=== PATIENT | female | born 1950 | race Caucasian/White ===

== ENCOUNTER 2022-06-06 12:34 | Observation (INO) | payer OTHER ==
[~2022-06-06] VITALS: Ht 149.9 cm; Wt 43.1 kg
[2022-06-06 15:15] LABS: BASOPHILS ABSOLUTE AUTO 0.02 K/mm3 (0.00-0.23); BASOPHILS PERCENT AUTO 0 % (0-2); EOSINOPHILS ABSOLUTE AUTO 0.06 K/mm3 (0.00-0.68); EOSINOPHILS PERCENT AUTO 1 % (0-6); Hematocrit 38.2 % (33.0-51.0); Hemoglobin 12.6 g/dL (11.5-16.0); IMMATURE GRAN ABSOLUTE AUTO 0.01 K/mm3 (0.00-0.10); IMMATURE GRAN PERCENT AUTO 0 % (0-1); LYMPHOCYTES ABSOLUTE AUTO 1.05 K/mm3 (0.84-5.20); LYMPHOCYTES PERCENT AUTO 12 % (21-46); MONOCYTES ABSOLUTE AUTO 0.33 K/mm3 (0.16-1.47); MONOCYTES PERCENT AUTO 4 % (4-13); Mean Corpuscular HGB 30.1 pg (26.0-34.0); Mean Corpuscular Volume 91 fL (80-100); Mean Platelet Volume 10.8 fL (9.1-12.4); NEUTROPHILS ABSOLUTE AUTO 7.13 K/mm3 (1.96-9.15); NEUTROPHILS PERCENT AUTO 83 % (41-73); Platelet Count 245 K/mm3 (150-400); RDW Coefficient Variation 13.7 % (11.7-14.2); RDW Standard Deviation 46.4 fL (35.1-46.3); Red Blood Cell Count 4.18 M/mm3 (3.80-5.20)
[2022-06-06 15:32] LABS: Albumin, Blood 3.8 g/dL (3.4-5.0); Bilirubin, Total 0.3 mg/dL (0.1-1.0); Bun/Creatinine Ratio 23.9 (12.0-20.0); Calcium, Blood 9.4 mg/dL (8.5-10.1); Creatinine, Blood 0.59 mg/dL (0.40-1.00); Globulin, Blood 3.8 g/dL (2.2-4.0); Potassium, Blood 3.6 mmol/L (3.5-5.5); Total Protein, Blood 7.6 g/dL (6.4-8.2)
--- NOTE | 2022-06-06 18:00 | NUR ---
SHIFT NOTE/SUMMARY: PATIENT CAME TO THE FLOOR TODAY FROM ER AT 1800. SHE IS A&OX4. VS ARE WNL AND IS ON RA. PATIENT DENIES NUMBNESS OR TINGLING IN ALL EXTREMITIES. HER RIGHT ARM HAS A SPLINT THAT IS C/D/I. HER RIGHT HIP IS RED AND SWOLLEN BUT CAN MOVE FINGERS AND TOES WHEN ASKED. SHE IS TOLERATING PO INTAKE. CALL LIGHT IS WITHIN REACH. AT BEDSIDE. DR. RAYGOZA HAS BEEN NOTIFIED OF CONSULT AND STATED HE WILL BE SEEING THE PATIENT IN THE MORNING.
[2022-06-06] MEDS ORDERED: VITAMIN B-122000 MC1 PO (21:40)
[2022-06-06] MEDS ORDERED: Nicoderm Cq1 EACH TOP (21:42)
--- NOTE | 2022-06-07 05:26 | NUR ---
LYING IN SEMI FWLERS WITH EYES OPEN. AAO X4, LIMITED MOVEMENT TO RUE DUE TO CAST TO ARM AND NON WEIGHT BEARING STATUS. 50% WT BEARING TO NONSURGICAL RLE. HAS BEEN GETTING OOB AND AMBULATING TO [facility] WITH 2 PERSON MAX ASSIST TO VOID AND HAVE BM TWICE SINCE START OF SHIFT, TOLERATED WELL. MEDICATED FOR PAIN WITH TORADOL PER EMAR. DENIES FURTHER NEEDS AT THIS TIME. SAFETY MEASURES IN PLACE. WILL CONTINUE TO MONITOR AND GIVE HAND OFF TO ONCOMING SHIFT USING SBAR DURING BEDSIDE REPORT.
--- NOTE | 2022-06-07 14:34 | NUR ---
SUMMARY NO ACUTE CHANGES SINCE ASSUMPTION OF CARE AT 0700. RIGHT HIP FX IS NON-SURGICAL PER DR RAYGOZA. R WRIST FX IS IN SPLINT AND STABLE. PATIENT IS TO BE NWB R WRIST & 50% WB ON R LEG. PATIENT AMBULATING WELL W/ GLENDY WALKER 1P ASSIST TO BATHROOM & CHAIR. PAINMANAGED WELL PER EMAR. EATING, DRINKING & VOIDING WELL. PLAN TO DC HOME WITH HOME HEALTH. CALLS APPROPRIATLY. REPORT GIVEN TO JESSI MULTANI.
[2022-06-07] MEDS ORDERED: TRAM50 PO (14:36)
[2022-06-07] MEDS ORDERED: Acetaminophen650 M1 PO (14:36)
[2022-06-07] MEDS ORDERED: IBUP400 PO (14:37)
--- NOTE | 2022-06-07 14:55 | NUR ---
DISCHARGE NOTE: PATIENT AND PATIENTS WERE EDUCATED ON DISCHARGE INSTRUCTIONS. BOTH VERBALIZED UNDERSTANDING OF INSTRUCTIONS AND HAD NO FURTHER QUESTIONS AT THIS TIME. PAIN IS MANAGED WITH PO PAIN MEDICATION. HARD PERSCRIPTION WAS GIVEN TO THE . SHE IS TOLERATING PO INTAKE AND IS VOIDING WELL HAVING BMS. PATIENT IS A SBA TO THE BATHROOM WITH HER GLENDY WALKER. SHE IS DRESSED AND HAS PERSONAL ITEMS IN THE ROOM GATHERED. RIGHT ARM HAS A SPLINT IN PLACE AND IS C/D/I. DENIES NUMBNESS OR TINGLING IN ALL EXTREMITIES. SHE WILL BE WHEELCHAIRED DOWN TO HER HUSBANDS CAR TO BE TAKEN HOME AND WILL RECIEVE HOME WITH HOME HEALTH.
--- NOTE | 2022-06-07 15:18 | NUR ---
PATIENT IS BEING WHEELCHAIRED OUT TO HER HUSBANDS CAR NOW TO BE TAKEN HOME.
== END 2022-06-07 15:17 | disposition home or self-care (01) ==
LOC: ER 12:34 → SURS 12:35 → ER 15:52 → SURS 15:52 → ERHOLD 15:52 → SURS 18:06 → ERHOLD 18:06 → SURS 06-07 15:17
PROVIDERS: Emergency Medicine; ADMIT Internal Medicine
DX: S72.114A Nondisplaced fracture of greater trochanter of right femur, initial encounter for closed fracture (principal); S52.501A Unspecified fracture of the lower end of right radius, initial encounter for closed fracture; W18.30XA Fall on same level, unspecified, initial encounter; Z88.2 Allergy status to sulfonamides; M85.80 Other specified disorders of bone density and structure, unspecified site
CPT/HCPCS: 29125; 70450; 73100; 73110; 73502; 73562-RT; 73610; 80053; 85025; 90471; 90714; 96374-59; 96375-59; 97116; 97161; 99285-25; G0378; J1885; J3010

== ENCOUNTER 2023-03-08 20:05 | Emergency (ER) | payer OTHER ==
[~2023-03-08] VITALS: Ht 137.2 cm; Wt 43.1 kg
[~2023-03-08 20:05] MED LIST: Acetaminophen650 M1 PO; IBUP400 PO; Nicoderm Cq1 EACH TOP; TRAM50 PO; VITAMIN B-122000 MC1 PO
[2023-03-08 20:45] VITALS: BP 149/82
[2023-03-08] MEDS ORDERED: AMOCLA875 PO (20:55)
[2023-03-08] MEDS ORDERED: HYDCHL25 PO (21:13)
== END 2023-03-08 21:04 | disposition home or self-care (01) ==
LOC: ER 20:05
DX: K04.7 Periapical abscess without sinus (principal); Z88.2 Allergy status to sulfonamides; Z88.8 Allergy status to other drugs, medicaments and biological substances
CPT/HCPCS: 99282; A9270

== ENCOUNTER → 2024-09-21 | Outpatient (CLI) | payer OTHER ==
[~2024-09-21] MED LIST changes: +AMOCLA875 PO; +HYDCHL25 PO
== END ==
LOC: LAB 10:26 → LAB SHORT 10:26
DX: R30.0 Dysuria (principal)
CPT/HCPCS: 87086